=== PATIENT | male | born 1965 | race African-American/Black ===

== ENCOUNTER 2016-11-10 15:38 | Emergency (ER) | payer OTHER ==
[~2016-11-10] VITALS: Ht 165.1 cm; Wt 81.0 kg
[~2016-11-10 15:38] MED LIST: Z.0.NO CURRENT MEDS
[2016-11-10 15:40] VITALS: BP 157/89; PULSE 92; RESP 16; TEMP 98; O2SAT 96
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
[2016-11-10] MEDS ORDERED: IBUPROFEN 800 MG TAB PO ONE (16:00)
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
[2016-11-10] MEDS ORDERED: EXTR500C PO (16:58)
[2016-11-10] MEDS ORDERED: IBUP800T23 PO (16:58)
[2016-11-10] MEDS ORDERED: CYCL1TAB29 PO (16:58)
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
== END 2016-11-10 17:34 | disposition home or self-care (01) ==
LOC: NEPK 15:38
DX: S20.221A Contusion of right back wall of thorax, initial encounter (principal); S70.01XA Contusion of right hip, initial encounter; S39.012A Strain of muscle, fascia and tendon of lower back, initial encounter; F17.200 Nicotine dependence, unspecified, uncomplicated; V59.88XA Occupant (driver) (passenger) of pick-up truck or van injured in other specified transport accidents, initial encounter
CPT/HCPCS: 71101; 72100; 73502; 99284